=== PATIENT | female | born 1960 | race Caucasian/White ===

== ENCOUNTER 2022-02-12 09:34 | Emergency (ER) | payer OTHER ==
[2022-02-12] MEDS ORDERED: NORCO 5-325 TA1 EACH PO (12:15)
[2022-02-12] MEDS ORDERED: CLEOCIN300 MG PO (12:15)
== END 2022-02-12 12:34 | disposition home or self-care (01) ==
LOC: FER 09:34
DX: L02.512 Cutaneous abscess of left hand (principal)